=== PATIENT | male | born 1965 | race African-American/Black ===

== ENCOUNTER 2016-09-06 11:22 | Emergency (ER) | payer MEDICAID ==
[~2016-09-06] VITALS: Ht 170.2 cm; Wt 86.0 kg
[2016-09-06] MEDS ORDERED: CLINDAMYCIN HCL 150 MG CAPSULE PO ONE (12:30)
[2016-09-06] MEDS ORDERED: IBUPROFEN 800 MG TABLET PO ONE (12:30)
[2016-09-06 13:15] VITALS: BP 130/72
== END 2016-09-06 13:25 | disposition home or self-care (01) ==
LOC: EMS 11:24
DX: K04.7 Periapical abscess without sinus (principal); B86 Scabies; Z88.0 Allergy status to penicillin
CPT/HCPCS: 99283